=== PATIENT | male | born 1965 | race Caucasian/White ===

== ENCOUNTER 2017-07-21 01:57 | Emergency (ER) | payer MEDICARE ==
[~2017-07-21] VITALS: Ht 182.9 cm; Wt 99.8 kg
[2017-07-21 02:10] VITALS: BP 143/96
[2017-07-21] MEDS ORDERED: oxyCODONE IR 5 MG TABLET ONE (02:25)
[2017-07-21] MEDS ORDERED: HYDR30CR6 RC (02:28)
[2017-07-21] MEDS ORDERED: [UNRECOGNIZED DRUG - CODE] RC (02:28)
[2017-07-21] MEDS ORDERED: OXYC5TAB95 PO (02:28)
[2017-07-21] MEDS ORDERED: oxyCODONE IR 5 MG TABLET PO PRN (02:30)
[2017-07-21] MEDS ORDERED: LIDOCAINE 5% TOPICAL OINTMENT 35GM TUBE. TP ONE (02:30)
[2017-07-21] MEDS ORDERED: LIDOCAINE 2% TOPICAL JELLY 30GM TUBE. TP ONE ×2 (02:32→02:45)
--- NOTE | 2017-07-21 02:44 | ED.ADGEN ---
Past History Past Medical History: Hypertension, Liver Disease Past Surgical History: Other Alcohol Use: Occasionally Drug Use: None Adult General HPI HPI Patient is a 51 year old male who presents with hemorrhoid pain. The patient has liver cirrhosis. He has a history of chronic hemorrhoids and related pain. He has been having severe pain over the last 3 days related to known hemorrhoids. He denies that he has been constipated. He has used over-the- counter medications to include suppositories but these have not relieved his pain symptoms. The patient has never previously been referred to a surgeon for more definitive treatment of his hemorrhoids. Review of Systems Review of Systems Constitutional: Denies fever or chills Eyes: Denies change in visual acuity HENT: Denies nasal congestion Respiratory: Denies cough or shortness of breath Cardiovascular: No additional information not addressed in HPI GI: Denies abdominal pain, nausea : Denies dysuria or hematuria Musculoskeletal: Denies back pain or joint pain Integument: Denies rash or skin lesions Neurologic: Denies headache, focal weakness or sensory changes Endocrine: Denies polyuria or polydipsia All other systems were reviewed and found to be within normal limits, except as documented in this note. Current Medications Current Medications Current Medications Medications (Trade) Dose Ordered Sig/Keely Start Time Stop Time Status Last Admin Dose Admin Lidocaine (Xylocaine) 1 carrol 1X ONCE 07/21/17 02:30 07/21/17 02:33 DC Lidocaine HCl (Xylocaine 2% Topical 30gm Tube) 1 carrol 1X ONCE 07/21/17 02:45 07/21/17 02:46 UNV 07/21/17 02:36 1 CARROL Oxycodone HCl (Roxicodone) 10 mg PRN Q6HRS PRN 07/21/17 02:30 UNV 07/21/17 02:28 10 MG Allergies Allergies Allergies Coded Allergies Type Severity Reaction Last Updated Verified No Known Drug Allergies 07/21/17 No Physical Exam Physical Exam Constitutional: Well developed, well nourished, no acute distress, non-toxic appearance. HENT: Normocephalic, atraumatic, bilateral external ears normal, oropharynx moist Abdomen: Bowel sounds normal, soft Skin: Warm, dry, no erythema, no rash Extremities: Normal ROM. No edema Neurologic: Alert and oriented X 3 Psychologic: Affect normal The patient has multiple hemorrhoids present at the anal opening. The largest is approximately 0.5 cm. All hemorrhoids are inflamed but none are thrombosed. They are all soft. Current Patient Data Vital Signs Vital Signs Date Time Temp Pulse Resp B/P (MAP) Pulse Ox O2 Delivery O2 Flow Rate FiO2 07/21/17 02:10 98.2 67 20 98 Room Air EKG EKG [] Radiology/Procedures Radiology/Procedures [] Course & Med Decision Making Course & Med Decision Making Pertinent Labs and Imaging studies reviewed. (See chart for details) Patient is seen and examined in the emergency department. His exam is documented above. There is no indication for thrombectomy. He does not have any thrombosed hemorrhoids. He simply has inflamed and irritated hemorrhoids. In the emergency department, the patient is provided 2% lidocaine topical. He is given oxycodone for pain. This is because he has a history of liver cirrhosis and no combination including acetaminophen would be appropriate. He is discharged to home. He is consult in to see a general surgeon for more definitive therapy. He is given Analpram 2.5% and dubicaine to use at home. Also provided an Rx for oxycodone. Opiate precautions are discussed. The patient is not driving himself home this evening. He is advised to follow-up with the general surgeon. Final Impression Final Impression Hemorrhoids Hi Disclaimer Hi Disclaimer This electronic medical record was generated, in whole or in part, using a voice recognition dictation system. GUY CASEY DO Jul 21, 2017 02:44
== END 2017-07-21 02:38 | disposition home or self-care (01) ==
LOC: ER 01:57
DX: K64.9 Unspecified hemorrhoids (principal); I10 Essential (primary) hypertension
CPT/HCPCS: 99283

== ENCOUNTER 2017-07-25 17:36 | Emergency (ER) | payer MEDICARE ==
[~2017-07-25] VITALS: Ht 182.9 cm; Wt 99.8 kg
[~2017-07-25 17:36] MED LIST: HYDR30CR6 RC; OXYC5TAB95 PO; [UNRECOGNIZED DRUG - CODE] RC
--- NOTE | 2017-07-25 17:38 | ED.ADGEN ---
Past History Past Medical History: Hypertension, Liver Disease Past Surgical History: Other Alcohol Use: Occasionally Drug Use: None Adult General Chief Complaint Chief Complaint " I got bad hemorrhoids... I used up all my pain tablets.. I could not afford the Nuprecaine.... It was 70 dollars for one little tube.." HPI HPI Patient is a 51 year old male who presents with above hx and complaints inflamed hemorrhoids. Seen previously , was unable to get Nupercaine - $70. a tube. [facility] . Hemorrhoids small and not terribly thrombosed. Requesting refill of Hydrocodone. Patient denies previous problems with hemorrhoids. Or colitis. Patient normally healthy. No history of specific ill contacts. No recent travel. Review of Systems Review of Systems Constitutional: Denies fever or chills [] Eyes: Denies change in visual acuity, redness, or eye pain [] HENT: Denies nasal congestion or sore throat [] Respiratory: Denies cough or shortness of breath [] Cardiovascular: No additional information not addressed in HPI [] GI: Denies abdominal pain, nausea, vomiting, bloody stools or diarrhea [] complains of rectal pain and hemorrhoids : Denies dysuria or hematuria [] Musculoskeletal: Denies back pain or joint pain [] Integument: Denies rash or skin lesions [] Neurologic: Denies headache, focal weakness or sensory changes [] Endocrine: Denies polyuria or polydipsia [] All other systems were reviewed and found to be within normal limits, except as documented in this note. Family History Family History Noncontributory Current Medications Current Medications See nursing for home meds Allergies Allergies Allergies Coded Allergies Type Severity Reaction Last Updated Verified No Known Drug Allergies 07/21/17 No Physical Exam Physical Exam Constitutional: Moderately acute distress, non-toxic appearance. [] HENT: Normocephalic, atraumatic, bilateral external ears normal, oropharynx moist, no oral exudates, nose normal. [] Eyes: PERRLA, EOMI, conjunctiva normal, no discharge. [] Neck: Normal range of motion, no tenderness, supple, no stridor. [] Cardiovascular:Heart rate regular rhythm, no murmur [] Lungs & Thorax: Bilateral breath sounds equal at apexes with scattered wheezes on auscultation [] Abdomen: Bowel sounds normal, soft, no tenderness, no masses, no pulsatile masses. [] Rectal patient has three small hemorrhoids. Skin: Warm, dry, no erythema, no rash. [] Back: No tenderness, no CVA tenderness. [] Extremities: No tenderness, no cyanosis, no clubbing, ROM intact, no edema. [] Neurologic: Alert and oriented X 3, normal motor function, normal sensory function, no focal deficits noted. [] Psychologic: Affect anxious, judgement normal, mood normal. [] Current Patient Data Vital Signs Vital Signs Date Time Temp Pulse Resp B/P (MAP) Pulse Ox O2 Delivery O2 Flow Rate FiO2 07/25/17 17:47 98.2 78 22 100 Room Air EKG EKG [] Radiology/Procedures Radiology/Procedures [] Course & Med Decision Making Course & Med Decision Making Pertinent Labs and Imaging studies reviewed. (See chart for details). Keep stool soft. MiraLAX or milk of magnesia daily.. Do sitz baths. Hydrocortisone cream to the hemorrhoids may be helpful. See if Dubicaine is cheaper. Keep follow up at GI. Return if any concerns. Follow up with primary. [] Final Impression Final Impression 1. Hemorrhoids[] Dragon Disclaimer Dragon Disclaimer This electronic medical record was generated, in whole or in part, using a voice recognition dictation system. CARMEL GARVEY MD Jul 25, 2017 17:38
[2017-07-25 17:47] VITALS: BP 132/86
[2017-07-25] MEDS ORDERED: HYDR-79 PO (17:51)
[2017-07-25] MEDS ORDERED: HYDR28.423 TP (17:53)
[2017-07-25] MEDS ORDERED: DIBU28OI RC (17:55)
== END 2017-07-25 17:58 | disposition home or self-care (01) ==
LOC: ER 17:36
DX: K64.9 Unspecified hemorrhoids (principal); I10 Essential (primary) hypertension
CPT/HCPCS: 99282; 99283